=== PATIENT | female | born 1980 | race Caucasian/White ===

== ENCOUNTER 2018-02-01 08:45 | Emergency (ER) | END 2018-02-01 10:09 | disposition home or self-care (01) ==

== ENCOUNTER 2018-09-20 16:20 | Emergency (ER) | payer MEDICAID ==
[~2018-09-20] VITALS: Ht 152.4 cm; Wt 64.0 kg
[~2018-09-20 16:20] MED LIST: ERYT1OIN6 LEFT EYE; IBUP-1561 PO
[2018-09-20 16:26] VITALS: Ht 152.4 cm; Wt 64.0 kg
[2018-09-20] MEDS ORDERED: ONDANSETRON 4 MG INJ IV STA (17:19)
[2018-09-20] MEDS ORDERED: SOD CHLORIDE 0.9% 1,000 ML IV STA (17:19)
[2018-09-20] MEDS ORDERED: morphine 2 MG INJ IV STA (17:19)
[2018-09-20] MEDS ORDERED: PHEN-538 PO (19:25)
[2018-09-20] MEDS ORDERED: NITR-58 PO (19:25)
--- NOTE | 2018-09-20 19:31 | ERD ---
ER Documentation Chief Complaint Chief Complaint RLQ PAIN X 4 DAYS HPI This is a 38-year-old female who presents with right lower quadrant abdominal pain that she has had for 3 days. No nausea vomiting or diarrhea. No fever. No dysuria or hematuria but does have increased urinary frequency. Has not taken any medication for her symptoms. ROS All systems reviewed and are negative except as per history of present illness. Medications Home Meds Active Scripts Phenazopyridine Hcl* (Pyridium*) 200 Mg Tab, 200 MG PO TID PRN for URINARY PAIN, #6 TAB Prov:HELENA PRESSLEY PA-C 09/20/18 Nitrofurantoin Monohyd Macrocr* (Macrobid*) 100 Mg Capsr, 100 MG PO BID for 7 Days, CAP Prov:HELENA PRESSLEY PA-C 09/20/18 Ibuprofen* (Motrin*) 400 Mg Tab, 400 MG PO Q8, #15 TAB Prov:RODOLFO LITTLE MD 02/01/18 Erythromycin Base (Erythromycin) 1 Gm Oint...g., 1 APPLIC LEFT EYE QID for 7 Days Prov:RODOLFO LITTLE MD 02/01/18 Allergies Allergies: Coded Allergies: No Known Drug Allergy (Verified Allergy, Unknown, 02/01/18) PMhx/Soc History of Surgery: No Anesthesia Reaction: No Hx Neurological Disorder: No Hx Respiratory Disorders: No Hx Cardiac Disorders: No Hx Psychiatric Problems: No Hx Miscellaneous Medical Probl: No Hx Alcohol Use: Yes Hx Substance Use: No Hx Tobacco Use: No Smoking Status: Never smoker FmHx Family History: No diabetes Physical Exam Vitals Vital Signs Date Temp Pulse Resp B/P (MAP) Pulse Ox O2 O2 Flow FiO2 Time Delivery Rate 09/20/18 98.8 84 19 107/70 98 16:26 (82) Physical Exam INITIAL VITAL SIGNS: Reviewed by me GENERAL: Awake, alert and oriented x 4, well appearing, nontoxic, speaking in full sentences. No acute distress HEAD: Atraumatic NECK: Supple. No masses. Full range of motion. No meningismus. No midline tenderness. EYES: EOMI. PERRL. RESPIRATORY: Clear to auscultation bilaterally. Symmetric chest wall rise. No wheezing or rales. No accessory muscle use. CV: Regular rate and rhythm. No murmurs, rubs, or gallops. ABDOMEN: Soft, non-distended. Nontender. Negative [place]. Positive McBurneys point tenderness. No CVA tenderness bilaterally. No guarding. No rebound. : Deffered. Result Diagram: 09/20/18 1741 09/20/18 1741 Results 24 hrs Laboratory Tests Test 09/20/18 17:41 White Blood Count 9.2 10^3/ul Red Blood Count 5.13 10^6/ul Hemoglobin 10.6 g/dl Hematocrit 35.1 % Mean Corpuscular Volume 68.4 fl Mean Corpuscular Hemoglobin 20.7 pg Mean Corpuscular Hemoglobin Concent 30.2 g/dl Red Cell Distribution Width 15.4 % Platelet Count 290 10^3/UL Mean Platelet Volume 10.1 fl Immature Granulocytes % 0.100 % Neutrophils % 60.9 % Lymphocytes % 30.1 % Monocytes % 7.3 % Eosinophils % 1.1 % Basophils % 0.5 % Nucleated Red Blood Cells % 0.0 /100WBC Immature Granulocytes # 0.010 10^3/ul Neutrophils # 5.6 10^3/ul Lymphocytes # 2.8 10^3/ul Monocytes # 0.7 10^3/ul Eosinophils # 0.1 10^3/ul Basophils # 0.1 10^3/ul Nucleated Red Blood Cells # 0.0 10^3/ul Urine Color YELLOW Urine Clarity CLOUDY Urine pH 6.0 Urine Specific [place] 1.025 Urine Ketones NEGATIVE mg/dL Urine Nitrite NEGATIVE mg/dL Urine Bilirubin NEGATIVE mg/dL Urine Urobilinogen NEGATIVE mg/dL Urine Leukocyte Esterase 2+ Herminio/ul Urine Microscopic RBC 11 /HPF Urine Microscopic WBC 8 /HPF Urine Squamous Epithelial Cells MODERATE /HPF Urine Mucus FEW /HPF Urine Hemoglobin NEGATIVE mg/dL Urine Glucose NEGATIVE mg/dL Urine Total Protein NEGATIVE mg/dl Sodium Level 141 mmol/L Potassium Level 3.6 mmol/L Chloride Level 105 mmol/L Carbon Dioxide Level 26 mmol/L Anion Gap 10 Blood Urea Nitrogen 12 mg/dl Creatinine 0.60 mg/dl Est Glomerular Filtrat Rate mL/min > 60 mL/min Glucose Level 96 mg/dl Calcium Level 9.5 mg/dl Total Bilirubin 0.1 mg/dl Direct Bilirubin 0.00 mg/dl Indirect Bilirubin 0.1 mg/dl Aspartate Amino Transf (AST/SGOT) 32 IU/L Alanine Aminotransferase (ALT/SGPT) 27 IU/L Alkaline Phosphatase 106 IU/L Total Protein 8.0 g/dl Albumin 4.3 g/dl Globulin 3.70 g/dl Albumin/Globulin Ratio 1.16 Lipase 61 U/L POC Beta HCG, Qualitative NEGATIVE Current Medications Medications Dose Sig/Ye Start Time Status Last (Trade) Ordered Route PRN Stop Time Admin Dose Reason Admin Sodium 1,000 ml @ Q1H STAT 09/20/18 DC 09/20/18 Chloride 1,000 mls/hr IV : 17:45 09/20/18 18:18 Morphine 2 mg ONCE STAT 09/20/18 DC 09/20/18 Sulfate IV : 17:45 (morphine) 09/20/18 17:21 Ondansetron 4 mg ONCE STAT 09/20/18 DC 09/20/18 HCl (Zofran IV 17:45 Inj) 09/20/18 17:21 Procedures/MDM The differential diagnosis includes but is not limited to appendicitis, chol elithiasis, cholecystitis, pancreatitis, hepatitis, gastritis, peptic ulcer disease, bowel obstruction, diverticulitis, renal disease including stones, torsion, AAA, pyelonephritis, and others. Labs are normal other than cystitis. CT and ultrasound negative. Patient discharged with Macrobid and Pyridium. Patient counseled regarding my diagnostic impression and care plan. Prior to discharge all questions answered. Pt agrees with treatment plan and understands strict return precautions. Pt is instructed to follow up with primary care provider within 24-48 hours. Precautionary instructions provided including instructions to return to the ER if not improving or for any worsening or changing symptoms or concerns. Departure Diagnosis: Primary Impression: Cystitis Additional Impression: Abdominal pain Condition: Stable Patient Instructions: Abdominal Pain, Cystitis Additional Instructions: Llame al doctor MAANA y bar ernesto DB PARA DENTRO DE 1-2 PARADA.Dgale a la secretaria que nosotros le instruimos hacer esta db.Avise o llame si casillas condicin se empeora antes de la db. Regresa aqui si peor o no mejor. HELENA PRESSLEY PA-C Sep 20, 2018 19:31
[2018-09-20 19:44] VITALS: BP 116/67; PULSE 65; RESP 18
== END 2018-09-20 19:47 | disposition home or self-care (01) ==
LOC: FTE 16:20
DX: N30.90 Cystitis, unspecified without hematuria (principal); R10.2 Pelvic and perineal pain
CPT/HCPCS: 36415; 74176; 76830; 76856; 80053; 81001; 81025; 83690; 85025; 96361; 96374; 96375; J2270; J2405; J7030; Z7502